=== PATIENT | male | born 1985 | race African-American/Black ===

== ENCOUNTER 2021-12-16 12:21 | Emergency (ER) | payer MEDICAID, OTHER ==
[~2021-12-16] VITALS: Ht 180.3 cm; Wt 86.0 kg
[2021-12-16] MEDS ORDERED: NVLG73 SUBCUT (12:46)
[2021-12-16] MEDS ORDERED: METO25TA6 PO (12:46)
[2021-12-16] MEDS ORDERED: SIMV5TAB58 PO (12:46)
[2021-12-16 14:10] LABS: BASOPHILS % 0.3 % (0.0-2.0); EOSINOPHILS % 0.2 % (0.0-5.0); HEMATOCRIT. 38.8 % (42.0-52.0); HEMOGLOBIN. 13.4 g/dL (14.0-18.0); LYMPHOCYTES % 8.3 % (20.0-50.0); MEAN CORPUSCULAR HEMOGLOBIN 28.6 pg (28.0-32.0); MEAN PLATELET VOLUME 8.8 fl (7.4-10.4); MONOCYTES % 6.4 % (2.0-8.0); NEUTROPHILS % 84.8 % (40.0-76.0); PLATELET 209 x1000/uL (130-400); RED BLOOD CELL COUNT 4.68 mill/uL (4.7-6.1); RED CELL DISTRIBUTION WIDTH 12.7 % (11.6-14.6)
[2021-12-16] MEDS ORDERED: CEFTRIAXONE 1 G PREMIX 50 ML IV ONE (14:15)
[2021-12-16 14:18] LABS: CHLORIDE 93 mEq/L (98-107)
[2021-12-16] MEDS ORDERED: SODIUM CHLORIDE 0.9% 1,000 ML IV ONE (14:30)
[2021-12-16] MEDS ORDERED: MORPHINE SULFATE 4 MG/ML CPJ (NOT FOR IM USE) IV ONE (15:15)
[2021-12-16] MEDS ORDERED: VANCOMYCIN 1500MG in DEXTROSE 5% WATER 250ML IV NR (15:30)
[2021-12-16 16:07] VITALS: BP 109/73
[2021-12-16] MEDS ORDERED: VANCOMYCIN 1GM PMX (XELLIA) 200 ML IV SCH (23:00)
== END 2021-12-16 17:36 | disposition short-term general hospital (02) ==
LOC: ER 12:21
DX: M86.8X7 Other osteomyelitis, ankle and foot (principal); E11.9 Type 2 diabetes mellitus without complications; E78.00 Pure hypercholesterolemia, unspecified; I10 Essential (primary) hypertension; G62.9 Polyneuropathy, unspecified; Z79.4 Long term (current) use of insulin; Z88.6 Allergy status to analgesic agent; Z88.8 Allergy status to other drugs, medicaments and biological substances; Z90.49 Acquired absence of other specified parts of digestive tract; Z87.891 Personal history of nicotine dependence
CPT/HCPCS: 36415; 73610; 80053; 82962; 83605; 85025; 85610; 86850; 86900; 86901; 87040; 93005; 96365; 96367; 96375; 99285; J0696; J2270; J3370; J7030; J7060